=== PATIENT | male | born 1980 | race Caucasian/White ===

== ENCOUNTER 2022-03-08 08:16 | Emergency (ER) | payer BC, OTHER, SELFPAY ==
[2022-03-08 08:24] VITALS: BP 169/101; PULSE 97; RESP 16; TEMP 37.1; O2SAT 98
--- NOTE | 2022-03-08 08:28 | ED.DENTAL ---
HPI - Dental/Oral General Chief complaint: Dental/Oral Stated complaint: Mouth Sore Time Seen by Provider: 03/08/22 08:29 History of Present Illness HPI Narrative: patient presents with history of dental caries. has not seen a dentist in some time. no trouble swallowing and no drooling. can open mouth fully. no fever. Related Data Allergies Allergy/AdvReac Type Severity Reaction Status Date / Time No Known Allergies Allergy Verified 03/08/22 08:28 Review of Systems Review of Systems: . CONSTITUTIONAL: Denies fever, chills, or sweats. EYES: Denies visual changes, redness, or discharge. ENT: Denies rhinorrhea, congestion, sore throat, or otalgia. CARDIOVASCULAR: Denies chest pain, palpitations, or edema. RESPIRATORY: Denies cough or dyspnea. GASTROINTESTINAL: Denies abdominal pain, nausea, vomiting, or diarrhea. GENITOURINARY: Denies dysuria or hematuria. SKIN: Denies rash or itching. MUSCULOSKELETAL: Denies back pain, joint pain, or myalgia. NEUROLOGIC: Denies headache, numbness, or weakness. PSYCHIATRIC: Denies anxiety or depression. All systems reviewed & are unremarkable except as noted in HPI and below ENT: Comments: patient presents with dental pain and lip swelling Exam Narrative: past hisotry per nursing note. At time of signature, agree with nursing past medical, surgical, social and family history. There is no relevant family history pertinent to the presenting complaint GENERAL: Well-appearing, well-nourished, and in no acute distress. HEAD: Normocephalic, atraumatic. EYES: PERRLA and EOMI. ENT: Nares clear, no rhinorrhea or epistaxis. Mucous membranes moist. NO FEVER. NO JAW SWELLING. NO NECK SWELLING. NO LIMITATION WITH SPEAKING OR SWALLOWING. HAS A HISTORY OF DENTAL CARIES. HAS NOT SEEN A DENTIST RECENTLY. NECK: Supple. CHEST: Clear to auscultation. No respiratory distress. HEART: Regular rate and rhythm. No murmur heard. Normal peripheral pulses. ABDOMEN: Soft, nontender, nondistended, normal active bowel sounds. EXTREMITIES: Normal range of motion. No edema. SKIN: Warm, dry, no rash. NEURO: No focal deficits. Alert and oriented x3. Stirling Coma Scale Eye Opening: Spontaneous 4 Stirling Coma Scale Motor: Obeys Commands 6 Stirling Coma Scale Verbal: Oriented 5 Chiquis Coma Scale Total 15 HENMT: Teeth and gingiva: abnormal tooth and associated gingiva (multiple dental caries no drainable absecee swelling to gums no drooling ) Resp: Effort & Inspection: normal respiratory effort Psych: Mental Status: mental status grossly normal Course Course Level of Care: Express Care Visit Vital Signs Vital signs: Vital Signs Temperature 37.1 C 03/08/22 08:24 Pulse Rate 97 03/08/22 08:24 Respiratory Rate 16 03/08/22 08:24 Blood Pressure 169/101 H 03/08/22 08:24 Pulse Oximetry 98 03/08/22 08:24 Oxygen Delivery Room Air 03/08/22 08:24 Temperature 37.1 C 03/08/22 08:24 Pulse Rate 97 03/08/22 08:24 Respiratory Rate 16 03/08/22 08:24 Blood Pressure 169/101 H 03/08/22 08:24 Pulse Oximetry 98 03/08/22 08:24 Oxygen Delivery Room Air 03/08/22 08:24 discussed elvated blood pressure and need to follow up with PCP and keep blood pressure diary discussed red flags and when to go to er MDM - Dental/Oral Differential Diagnosis Differential diagnosis: Likely gingival abscess, dental caries, toothache, dental abscess, fracture of tooth and aphthous ulcer Discharge Plan Discharge Clinical Impression: Toothache, Dental caries, Dental abscess Patient Disposition: Home, Self-Care Condition: Stable Instructions: Antibiotic Form, Dental Abscess (ED) Additional Instructions: follow up with dentist as soon as possible medication as prescribed if any new or worsening of symptoms go to er immediately Prescriptions: New prednisone 20 mg tablet 40 mg PO DAILY 5 Days Qty: 10 0RF amoxicillin 875 mg tablet 875 mg PO Q12H 10 Days Qty: 20 0RF Foll
== END 2022-03-08 08:40 | disposition home or self-care (01) ==
PROVIDERS: Emergency Provider Nurse Practitioner Family
DX: K02.9 Dental caries, unspecified (principal); K04.7 Periapical abscess without sinus
CPT/HCPCS: 99213; G0463

== ENCOUNTER 2022-08-02 10:29 | Emergency (ER) | payer BC, OTHER, SELFPAY ==
[2022-08-02 10:37] VITALS: BP 141/81; PULSE 86; RESP 16; TEMP 37.5; O2SAT 98
--- NOTE | 2022-08-02 11:14 | ED.DENTAL ---
HPI - Dental/Oral General Chief complaint: Dental/Oral Stated complaint: swelling of mouth; tooth pain Time Seen by Provider: 08/02/22 11:16 Source: patient Mode of arrival: ambulatory Limitations: no limitations History of Present Illness HPI Narrative: 42-year-old male presents with concern for pain above his lip under his nose, dental pain, lip swelling. He reports problems with his teeth, missing teeth, broken teeth, caries. He denies fever or trouble swallowing. He denies injury to the lip. Denies trouble breathing or swollen tongue MD Complaint: tooth pain Related Data Allergies Allergy/AdvReac Type Severity Reaction Status Date / Time No Known Allergies Allergy Verified 08/02/22 10:41 Review of Systems Review of Systems: CONSTITUTIONAL: Denies malaise, chills, sweats, or fever. EYES: Denies visual changes ENT: Denies rhinorrhea, congestion, sinus pain, otalgia or sore throat. Reports upper mid dental pain with lip swelling CARDIOVASCULAR: Denies chest pain, palpitations RESPIRATORY: Denies cough or dyspnea. SKIN: Denies rash or itching. MUSCULOSKELETAL: Denies myalgia. NEUROLOGIC: Denies numbness, weakness, or headache. All systems reviewed & are unremarkable except as noted in HPI and below PMFSH Comments At time of signature, agree with nursing past medical, surgical, social and family history. There is no relevant family history pertinent to the presenting complaint Exam Narrative: GENERAL: Well-appearing, well-nourished, and in no acute distress. HEAD: Normocephalic, atraumatic. EYES: PERRLA, sclera clear ENT: Nares clear, turbinates pink, no rhinorrhea or epistaxis. Mucous membranes moist. Oropharynx without erythema or lesions. Tonsils not enlarged and without exudate. Missing teeth, broken teeth, caries, upper lobe slightly edematous, tenderness below the nose NECK: Supple. No lymphadenopathy. CHEST: No respiratory distress. Speaks in full sentences. HEART: Regular rate and rhythm. SKIN: Warm, dry, no visible rash. NEURO: Alert and oriented x3. PSYCH: Normal mood and affect Course Course Emergency Course: Patient is aware of diagnosis, understands and agrees to treatment plan. Anticipatory guidance given. Patient agrees to follow-up as directed and is aware of reasons to seek care at the emergency department. Portions of this record may have been created with voice recognition software Level of Care: Express Care Visit Vital Signs Vital signs: Vital Signs Temperature 99.5 F 08/02/22 10:37 Pulse Rate 86 08/02/22 10:37 Respiratory Rate 16 08/02/22 10:37 Blood Pressure 141/81 H 08/02/22 10:37 Pulse Oximetry 98 08/02/22 10:37 Oxygen Delivery Room Air 08/02/22 10:37 Temperature 99.5 F 08/02/22 10:37 Pulse Rate 86 08/02/22 10:37 Respiratory Rate 16 08/02/22 10:37 Blood Pressure 141/81 H 08/02/22 10:37 Pulse Oximetry 98 08/02/22 10:37 Oxygen Delivery Room Air 08/02/22 10:37 Reviewed. MDM - Dental/Oral MDM Narrative Medical decision making narrative: Patients pain and complaint coupled with physical findings are consistant with dentalgia. There are no focal signs of space occupying lesions that are compromising to the airway; no dysphagia, odynophagia, dysphonia, or dyspnea. No uvular deviation or soft palate edema. Patient is non-toxic appearing. The floor of the mouth is soft with no signs of Richard's Angina; no induration below mandible, no neck pain. Patient is without trismus or drooling and able to swallow secretions. Patient is felt appropriate for discharge home with dental follow up. Differential Diagnosis Differential diagnosis: Likely gingival abscess, dental caries, toothache, dental abscess, fracture of tooth and aphthous ulcer Critical Care Time Critical Care Time Critical Care Time: No Discharge Plan Discharge Clinical Impression: Toothache Patient Disposition: Home, Self-Care Condition: Stable Instr
== END 2022-08-02 11:28 | disposition home or self-care (01) ==
PROVIDERS: Emergency Provider Nurse Practitioner
DX: K08.89 Other specified disorders of teeth and supporting structures (principal)
CPT/HCPCS: 99213; G0463

== ENCOUNTER 2023-10-26 08:27 | Emergency (ER) | payer OTHER, SELFPAY ==
[2023-10-26 08:43] VITALS: BP 121/74; PULSE 84; RESP 22; TEMP 36.9; O2SAT 99
--- NOTE | 2023-10-26 08:54 | ED.URI ---
HPI - URI/Sore Throat General Chief Complaint: Upper Respiratory Infection Stated Complaint: Cough/Congestion History of Present Illness HPI Narrative: Pt is a 43 y/o male, presents to with complaints of watery eyes, runny nose and a barky cough for the past 3 days. He has no associated fevers. He denies chest pain shortness of breath. He does report having recurrent bronchitis. He has no history of seasonal allergies. He is not taking any [id number] medications for symptom relief at this time. He has no known sick contacts but was concerned for COVID, prompting his visit today. Related Data Home Medications Medication Instructions Recorded Confirmed No Home Medications 10/26/23 10/26/23 Allergies Allergy/AdvReac Type Severity Reaction Status Date / Time No Known Allergies Allergy Verified 10/26/23 08:41 Review of Systems Constitutional: Comments: Refer to HPI ENT: Comments: refer to HPI Respiratory: Comments: refer to HPI Exam Const: General: cooperative, healthy appearing, comfortable and obese Nutritional Appearance: well nourished and obese Orientation/consciousness: oriented to person, oriented to place, oriented to time and patient oriented x3 Limitations: no limitations HENMT: Head: other ( 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) Ears: hearing grossly normal bilaterally, external ears normal and TM's normal bilaterally Face/Nose/Sinus: Normal external nose present and Normal nares present Mouth: Yes Normal oral and palatal mucosa present, Yes lip normal and Yes tongue normal Throat: posterior oropharynx normal Eyes: General: appearance normal, both eyes and all related structures Visual Chilel: normal visual chilel by confrontation Conjunctivae: conjunctivae normal Sclera: sclerae normal Cornea: corneas normal EOM: EOMs intact bilaterally Neck: Neck: normal visual inspection, full ROM, no lymphadenopathy and no meningeal signs Lymphatic: no lymphadenopathy noted Resp: Effort & Inspection: normal respiratory effort Auscultation: clear to auscultation bilaterally Percussion: percussion normal Other: spasmodic cough is noted throughout exam, harsh and barking, no wheezing, rales or rhonchi appreciated on auscultation Cardio: Palpation: normal PMI Rate: regular rate ( heart rate 78 PMI) Neuro: General: oriented to person, oriented to place, oriented to time and patient oriented x3 Cranial nerves: Yes CN's II-XII intact bilaterally Extrem: General: normal to inspection, full ROM and capillary refill normal Course Course Emergency Course: cov negative, strep negative, suspect viral URI versus seasonal allergies in addition to bronchitis, will treat with short steroid course, inhaler, [id number] Delsym for cough suppression, [id number] Zyrtec also encouraged. Patient is agreeable with plan. Level of Care: Express Care Visit ([id number]) Vital Signs Vital signs: Vital Signs Temperature 36.9 C 10/26/23 08:43 Pulse Rate 84 10/26/23 08:43 Respiratory Rate 22 H 10/26/23 08:43 Blood Pressure 121/74 10/26/23 08:43 Pulse Oximetry 99 10/26/23 08:43 Oxygen Delivery Room Air 10/26/23 08:43 Temperature 36.9 C 10/26/23 08:43 Pulse Rate 84 10/26/23 08:43 Respiratory Rate 22 H 10/26/23 08:43 Blood Pressure 121/74 10/26/23 08:43 Pulse Oximetry 99 10/26/23 08:43 Oxygen Delivery Room Air 10/26/23 08:43 MDM - URI/Sore Throat MDM Narrative Medical decision making narrative: Prednisone, ProAir, [id number] Zyrtec or Claritin, PCP follow up if fevers are eyes or in 3-5 days if symptoms are not improving. Discharge Plan Discharge Clinical Impression: Bronchitis Upper respiratory infection Qualifiers: URI type: unspecified viral URI Qualified Code(s): J06.9 - Acute upper respiratory infection, unspecified Patient Disposition: Home, Self-Care Condition: Stab
[2023-10-26 09:10] LABS: EDSTREPNEGPOS1 Negative
== END 2023-10-26 09:10 | disposition home or self-care (01) ==
PROVIDERS: Emergency Provider Nurse Practitioner Family
DX: J40 Bronchitis, not specified as acute or chronic (principal); J06.9 Acute upper respiratory infection, unspecified; Z20.822 Contact with and (suspected) exposure to COVID-19
CPT/HCPCS: 87081; 87426; 87880; 99213; G0463

== ENCOUNTER 2024-11-05 04:47 | Emergency (ER) | payer OTHER, SELFPAY ==
--- NOTE | ~2024-11-05 | CT_ITS ---
EXAMINATION: CT abdomen pelvis wo con, 11/05/2024 5:29 CDT HISTORY: flank pain, stone COMPARISON: No comparisons available. TECHNIQUE: CT scan of the abdomen and pelvis was performed without IV contrast. One or more of the following dose reduction techniques were used: automated exposure control, adjustment of the mA and/or kV according to patient size, use of iterative reconstruction technique. Unless otherwise stated, incidental findings do not require dedicated follow up imaging FINDINGS: CT abdomen: LUNG BASES: The lung bases are clear. The visualized portions of the heart and pericardium are unremarkable. LIVER: Unremarkable, liver contours intact, no lesions. SPLEEN: Unremarkable, no splenomegaly. KIDNEYS: Right Kidney: Right kidney multiple renal calculi largest midpole 3 mm, mild hydronephrosis due to an obstructing proximal ureteral calculus measuring 3 x 3 mm. Left Kidney: Left kidney renal calculi, The largest midpole 2 mm. ADRENAL GLANDS: Unremarkable. PANCREAS: Unremarkable. GALLBLADDER/BILIARY: Unremarkable. No biliary dilatation. STOMACH AND ESOPHAGUS: Visualized stomach and esophagus within normal limits. BOWEL/MESENTERY: Moderate fecal content, no colitis or diverticulitis. Appendix normal. Mesentery normal. Small bowel normal. ADENOPATHY/RETROPERITONEUM: No lymphadenopathy. AORTA/VASCULATURE: Normal caliber aorta. FREE FLUID OR FREE AIR: None. CT pelvis: SOLID ORGANS/REPRODUCTIVE: Unremarkable. BLADDER: Within normal limits. OSSEOUS STRUCTURES: No acute osseous abnormality.No suspicious lesions. OVERLYING SOFT TISSUES: There are very small bilateral fat-containing inguinal hernia. IMPRESSION: 1. Right-sided obstructive uropathy. Reviewed, dictated and finalized at location A.
[2024-11-05 04:53] VITALS: BP 153/84; PULSE 65; RESP 18; TEMP 36.8; O2SAT 100
[2024-11-05 05:13] LABS: Hematocrit 47.3 % (42.0-52.0); Hemoglobin 15.3 g/dL (14.0-18.0); Immature Granulocyte Percent A 0.5 % (0-0.5); Lymphocytes Absolute Auto 4.05 K/mm3 (0.9-3.2); Mean Corpuscular HGB Conc 32.3 g/dl (32-36); Mean Corpuscular Hemoglobin 28.8 pg (26-34); Mean Corpuscular Volume 89.1 fl (80-100); Nucleated Red Blood Cells Absolute Auto 0.000 K/mm3 (0.0-0.012); Nucleated Red Blood Cells Perc 0.0 % (0.0-0.2); Platelet Count Result 222 k/mm3 (150-375); Red Blood Count 5.31 M/mm3 (4.6-6.20); White Blood Count 8.2 K/mm3 (4.5-10.0)
[2024-11-05 05:17] LABS: Add Urine Microscopic? YES; Appearance Urine Turbid (Clear); Glucose Urine UA Negative (Negative); Leukocyte Esterase Ur Negative LEU/UL (Negative); Nitrate Urine Negative (Negative); Non Pathogenic Casts 0-2; Specific Grav Ur 1.029 (1.001-1.035)
[2024-11-05 05:34] LABS: Alanine Aminotransferase 37 U/L (6-50); Albumin Level 4.5 g/dL (3.5-5.1); Alkaline Phosphatase 84 U/L (38-126); Anion Gap 11 mmol/L (4-12); Aspartate Amino Transferase 36 U/L (17-59); Bilirubin,Total 0.5 mg/dL (0.2-1.3); Blood Urea Nitrogen 13 mg/dL (9-20); Calcium 9.1 mg/dL (8.4-10.2); Carbon Dioxide 22 mmol/L (22-30); Chloride 106 mmol/L (98-107); Estimated CRCL calculation 130 ml/min; Estimated Glomerular Filt Rate > 60; Glucose 139 mg/dL (65-110); Potassium 4.1 mmol/L (3.4-5.0); Sodium 139 mmol/L (137-145); Total Protein 8.6 g/dL (6.3-8.2)
[2024-11-05] MEDS: SODIUM CHLORIDE 0.9% IV 1,000 ML 999 ML IV CONT (05:41)
[2024-11-05] MEDS: ONDANSETRON INJ 4 MG/2 ML VIAL IV PUSH (05:41)
[2024-11-05] MEDS: KETOROLAC 15 MG/ML VIAL (*BKC) IV PUSH (05:41)
[2024-11-05 06:07] VITALS: BP 154/97; PULSE 60; RESP 14; O2SAT 98
[2024-11-05] MEDS: METOCLOPRAMIDE HCL INJ 10 MG/2 ML VIAL IV PUSH (06:52)
[2024-11-05] MEDS: MORPHINE SULFATE (*CRX) 4 MG/ML INJ IV PUSH (06:52)
[2024-11-05 07:01] VITALS: BP 147/85; PULSE 74; RESP 16; TEMP 36.6; O2SAT 100
--- NOTE | 2024-11-05 07:04 | ED_ITS ---
HPI - General Adult General Chief complaint: Urogenital-Male Stated complaint: flank pain Time Seen by Provider: 11/05/24 06:55 History of Present Illness HPI narrative: 44-year-old male presents to the emergency department for evaluation for right flank pain. Patient does have a known history of kidney stones that last needed stenting and lithotripsy approximately 3 years ago. Patient reports pain started by having home last night. Patient does complain of sharp right flank pain. Related Data Allergies Allergy/AdvReac Type Severity Reaction Status Date / Time No Known Allergies Allergy Verified 11/05/24 04:48 Review of Systems 2 Review of Systems: All systems reviewed & are unremarkable except as noted in HPI and below Exam 2 Narrative: APPEARANCE: Well-appearing HEAD: normocephalic, post craniectomy EYES: PERRLA/EOMI, conjunctivae clear. NOSE: Normal no drainage EARS:TMS clear with good light reflex. THROAT: Pharynx clear, no exudate. NECK: Supple. No adenopathy, no masses. RESPIRATORY: Airway patent, respirations nonlabored. Clear to auscultation bilaterally, no rales, rhonchi, wheezing. CARDIOVASCULAR: Regular rate and rhythm without murmurs rubs or gallops. ABDOMINAL: Soft, nontender, nondistended, normal bowel sounds MUSCULOSKELETAL: Moves all extremities. Strength/ROM intact, No edema, No calf tenderness. NEURO: Alert. Cranial nerves II through XII intact. Good gait. Good coordination SKIN: Warm, dry. Normal Color Course Vital Signs Vital signs: Vital Signs Temperature 98.3 F 11/05/24 04:53 Pulse Rate 65 11/05/24 04:53 Respiratory Rate 18 11/05/24 04:53 Blood Pressure 153/84 H 11/05/24 04:53 Pulse Oximetry 100 11/05/24 04:53 Oxygen Delivery Room Air 11/05/24 04:53 Temperature 97.8 F 11/05/24 07:01 Pulse Rate 74 11/05/24 07:53 Respiratory Rate 16 11/05/24 07:53 Blood Pressure 132/86 11/05/24 07:53 Pulse Oximetry 98 11/05/24 07:53 Oxygen Delivery Room Air 11/05/24 04:53 Medical Decision Making [facility] Narrative Medical decision making narrative: 44-year-old male presents to the emergency department for evaluation for right flank pain. Patient is afebrile with no leukocytosis hemoglobin of 15.3. No acute abnormalities on the CMP UA was positive for blood but negative for infection and CT does show a 2 mm proximal right ureter stone. Patient did feel improved with treatment. At time of evaluation patient is in no distress. Patient was discharged home with medications for pain control and Flomax to help pass the stone. Patient family were updated on the results of the workup and plan for discharge follow-up with Urology. They are also educated on reasons to return to the emergency department. Differential Diagnosis Differential Diagnosis: Colitis, diverticulitis, urinary tract infection, ureteral calculi, bladder stone Vital Signs Vital Signs: Vital Signs Temperature 98.3 F 11/05/24 04:53 Pulse Rate 65 11/05/24 04:53 Respiratory Rate 18 11/05/24 04:53 Blood Pressure 153/84 H 11/05/24 04:53 Pulse Oximetry 100 11/05/24 04:53 Oxygen Delivery Room Air 11/05/24 04:53 Temperature 97.8 F 11/05/24 07:01 Pulse Rate 74 11/05/24 07:53 Respiratory Rate 16 11/05/24 07:53 Blood Pressure 132/86 11/05/24 07:53 Pulse Oximetry 98 11/05/24 07:53 Oxygen Delivery Room Air 11/05/24 04:53 Lab Data Lab results reviewed: Yes I reviewed the patient's lab results. 11/05/24 05:05 11/05/24 05:05 Labs: Lab Results 11/05/24 Range/Units 05:05 WBC 8.2 (4.5-10.0) K/mm3 RBC 5.31 (4.6-6.20) M/mm3 Hgb 15.3 (14.0-18.0) g/dL Hct 47.3 (42.0-52.0) % MCV 89.1 (80-100) fl MCH 28.8 (26-34) pg MCHC 32.3 (32-36) g/dl RDW 14.0 (11.5-14.5) % Plt Count 222 (150-375) k/mm3 MPV 9.1 (7.4-10.4) fl Immature Gran % (Auto) 0.5 (0-0.5) % Neut % (Auto) 36.6 L (45.5-73.1) % Lymph % (Auto) 49.4 H (18.3-44.2) % Warrick % (Auto) 10.4 H (2.6-8.5) % Eos % (Auto) 2.4 (0-4.4) % Baso % (Auto) 0.7 (0.2-1.2) % Lymph # (Auto) 4.05 H (0.9-3.2) K/mm3 Warrick # (Auto) 0.9 H (0.1-0.6) K/mm3 Eos # (Auto) 0.2 (0-0.3) K/mm3 Baso # (Auto) 0.1 (0.0-0.1) K/mm3 Abs Immat Gran (auto) 0.04 H (0.00-0.031) K/mm3 Absolute Neuts (auto) 3.0 (1.3-6.7) K/mm3 Absolute Nucleated RBC 0.000 (0.0-0.012) K/mm3 Nucleated RBC % 0.0 (0.0-0.2) % Sodium 139 (137-145) mmol/L Potassium 4.1 (3.4-5.0) mmol/L Chloride 106 (98-107) mmol/L Carbon Dioxide 22 (22-30) mmol/L Anion Gap 11 (4-12) mmol/L BUN 13 (9-20) mg/dL Creatinine 0.89 (0.7-1.3) mg/dL Estim Creat Clear Calc 130 ml/min Estimated GFR > 60 (59 - ) Glucose 139 H (65-110) mg/dL Calcium 9.1 (8.4-10.2) mg/dL Total Bilirubin 0.5 (0.2-1.3) mg/dL AST 36 (17-59) U/L ALT 37 (6-50) U/L Alkaline Phosphatase 84 (38-126) U/L Total Protein 8.6 H (6.3-8.2) g/dL Albumin 4.5 (3.5-5.1) g/dL Urine Color Yellow (Yellow) Urine Appearance Turbid H (Clear) Urine pH 5.0 (5.0-9.0) Ur Specific Vincent 1.029 (1.001-1.035) Urine Protein 1+ H (Negative) mg/dL Urine Glucose (UA) Negative (Negative) mg/dL Urine Ketones Negative (Negative) mg/dL Ur Blood (Man) 2+ H (Negative) Urine Nitrate Negative (Negative) Urine Bilirubin Negative (Negative) Urine Urobilinogen 1.0 (<2.0) mg/dL Leukocyte Esterase Rfl Negative (Negative) ADONAY/UL Urine RBC >100 H (0-2) /hpf Urine WBC 0-5 (0-3) /hpf Ur Squamous Epith Cells None seen (Few) /hpf Urine Bacteria None seen /hpf Urine Casts 0-2 Imaging Data Radiologist's impression: Overnight read: CT renal limited due to lack of IV contrast, all right proximal your 0.2 cm stone mild hydronephrosis. Correlate for UTI or pyelonephritis. Discharge Plan Discharge Clinical Impression: Calculus, ureteral Patient Disposition: Home Condition: Stable Instructions: Antibiotic Form, Kidney Stones (ED), Renal Colic (ED), How to Strain Your Urine (ED), Flank Pain (ED) Additional Instructions: Ibuprofen for pain control. Flomax to help you pass the stone. Zofran as needed for nausea control. Custer as needed for additional pain control. Have close follow-up with Urology. Strain your urine as instructed. If you have any worsening symptoms then please call or return to the emergency department. Patient Language: Burkinan Prescriptions: New hydrocodone-acetaminophen 5-325 mg tablet 1 tablet PO Q12H PRN (Reason: pain) Qty: 14 0RF tamsulosin [Flomax] 0.4 mg capsule 0.4 mg PO DAILY 14 Days Qty: 14 0RF ondansetron 4 mg tablet,disintegrating 4 mg PO Q8H PRN (Reason: nausea and vomiting) Qty: 14 0RF No Action prednisone 20 mg tablet 40 mg PO DAILY 5 Days Qty: 10 0RF Proair Digihaler 90 mcg/actuation aero powdr breath act w/sensor 1 inh inhalation Q4-6H PRN (Reason: shortness of breath) Qty: 1 0RF Rx Instructions: MAY SUBSTITUTE FOR PREFERRED INHALER ON PATIENT'S INSURANCE PLAN Follow-up/Referrals: Gustavo Prakash MD [Physician, Urology] UNKNOWN,DOCTOR [Non-Staff]
[2024-11-05 07:53] VITALS: BP 132/86; PULSE 74; RESP 16; O2SAT 98
== END 2024-11-05 07:58 | disposition home or self-care (01) ==
LOC: ANHED 07:56
PROVIDERS: Emergency Medicine; Emergency Provider Emergency Medicine
DX: N20.1 Calculus of ureter (principal)
CPT/HCPCS: 36415; 74176; 80053; 81001; 85025; 96361; 96374; 96375; 99284; J1200; J1885; J2270; J2405; J2765; J7030